=== PATIENT | female | born 1950 | race Caucasian/White ===

== ENCOUNTER 2018-08-12 08:40 | Day surgery (SDC) | payer MEDICARE ==
[~2018-08-12] VITALS: Ht 167.6 cm; Wt 53.6 kg
--- NOTE | ~2018-08-12 | OP ---
PATIENT NAME: DARIUS CARBAJAL MEDICAL RECORD: [id number] :52 LOCATION:[facility] ADMISSION DATE: SURGEON: HARLEY SHAFFER DO DATE OF OPERATION: 08/12/2018 PROCEDURE: Colonoscopy with polypectomy. INDICATION FOR PROCEDURE: Screening for colorectal cancer. SCOPE: Olympus video pediatric colonoscope. MEDICATIONS: Propofol 500 mg IV per anesthesia. WITHDRAWAL TIME: 30 minutes. ESTIMATED BLOOD LOSS: Minimal. COMPLICATIONS: None. FINDINGS: Informed consent was given. The patient was made comfortable with the above medication. After reaching an adequate level of sedation by slow IV push, the patient was placed on her left side. A digital rectal examination was performed and was normal. The endoscope was then advanced under direct visualization through the rectum to the cecum, confirmed by the presence of the appendiceal orifice and the ileocecal valve. In the cecum, there were 2 separate polyps. One was a diminutive benign-appearing polyp measuring approximately 2 mm, which was removed using hot forceps. The other was a larger polyp measuring approximately 1.4 cm in size. It was benign appearing. It was removed using EMR technique with Eleview injection for a cushion followed by snare polypectomy in one piece. There were no other polyps visualized on today's examination. There were no diverticula seen. Retroflexion was performed in the rectum with visualization of grade II internal hemorrhoids without bleeding. The endoscope was withdrawn from the patient. The patient tolerated the procedure well and there were no complications. The large polyp removed was endoclipped after removal for tissue positioning purposes and to prevent complications after discharge. Two clips were used in total successfully. IMPRESSION: 1. Two cecal polyps removed using combination of hot forceps and hot snare with EMR technique. 2. Grade II internal hemorrhoids without bleeding. PLAN AND RECOMMENDATIONS: 1. Discharge home when recovery parameters are met. 2. Follow up biopsy specimen results. 3. High-fiber diet. 4. Continue current medications. 5. Recall colonoscopy in 2 years. TRANSINT:[id number] Voice Confirmation ID: [id number] DOCUMENT ID: [id number] OPERATIVE REPORT [id number] DARIUS CARBAJALHARLEY MANSFIELD DO CC: [id number] DICTATION DATE: 08/12/18 1144 [employer] RUNNER: 08/12/18 140[id number] [place] [address]
[2018-08-12] MEDS ORDERED: ADVAIR HFA [SP]12 GM INH (09:29)
[2018-08-12] MEDS ORDERED: TUDORZA PRESS400 MCG INH (09:30)
[2018-08-12] MEDS ORDERED: MAXZIDE 75/501 TAB PO (09:31)
[2018-08-12] MEDS ORDERED: LISINOPRIL5 MG PO (09:31)
[2018-08-12 09:41] VITALS: BP 210/107; BMI 19.0
--- NOTE | 2018-08-12 09:45 | NUR ---
PT BP 210/107. INFORMED ANESTHESIA TEAM OF BP. BILL STATES NOT TO GIVE BP MED. WILL CONTINUE TO MONITOR.
[2018-08-12 11:29] LABS: HEMATOCRIT 47.7 % (36.0-48.0); HEMOGLOBIN 16.3 g/dL (12-16); MCH 31.7 pg (26.0-34.0); MCHC 34.2 g/dL (31.0-37.0); MCV 92.8 fL (80.0-100.0); MEAN PLATELET VOLUME 10.6 fL (7.4-10.4); RBC 5.14 10x6/uL (4.00-5.40); RDW 11.8 % (11.5-14.5); WBC 9.5 10x3/uL (4.8-10.8)
--- NOTE | 2018-08-12 15:10 | NUR ---
Lisy MEDINA FROM DR. GOLDBERG OFFICE AT BEDSIDE. NO NEW ORDERS. IV D/C'D WITH CANNULA INTACT. VSS. NO COMPLAINTS. DISCHARGE INSTRUCTIONS GIVEN AND PT VERBALIZED AN UNDERSTANDING
[2018-08-12 15:13] VITALS: Ht 167.6 cm; Wt 53.6 kg
== END 2018-08-12 15:08 | disposition home or self-care (01) ==
LOC: D.OPS 08:40
PROVIDERS: Anesthesiology; ATTEND Internal Medicine Gastroenterology
DX: Z12.11 Encounter for screening for malignant neoplasm of colon (principal); D12.0 Benign neoplasm of cecum; K64.1 Second degree hemorrhoids; Z01.812 Encounter for preprocedural laboratory examination

== ENCOUNTER 2018-08-19 09:19 | Day surgery (SDC) | payer MEDICARE ==
[~2018-08-19] VITALS: Ht 167.6 cm; Wt 56.7 kg
[~2018-08-19 09:19] MED LIST: ADVAIR HFA [SP]12 GM INH; LISINOPRIL5 MG PO; MAXZIDE 75/501 TAB PO; TUDORZA PRESS400 MCG INH
[2018-08-19 10:06] LABS: HEMATOCRIT 45.3 % (36.0-48.0); MCH 31.4 pg (26.0-34.0); MCHC 33.1 g/dL (31.0-37.0); MCV 94.8 fL (80.0-100.0); MEAN PLATELET VOLUME 9.9 fL (7.4-10.4); RBC 4.78 10x6/uL (4.00-5.40); RDW 12.2 % (11.5-14.5); WBC 8.9 10x3/uL (4.8-10.8)
[2018-08-19 10:24] LABS: CALC OSMOLALITY 278 mosm/kg (275-300); CALCIUM 9.3 mg/dL (8.5-10.1); CARBON DIOXIDE 30.4 mmol/L (21.0-32.0); CHLORIDE - SERUM 98 mmol/L (98-107); CREATININE - SERUM 0.8 mg/dL (0.6-1.3); GLUCOSE 145 mg/dL (74-106); POTASSIUM - SERUM 4.3 mmol/L (3.5-5.1); SODIUM 137 mmol/L (136-145); UREA NITROGEN 18 mg/dL (7-18); eGFR NON AFRICAN AMERICAN 76 mL/min (90-120)
[2018-08-19 10:31] VITALS: BP 165/80; Ht 167.6 cm; Wt 56.7 kg
--- NOTE | 2018-08-19 12:11 | NUR ---
DC INSTRUCTIONS GIVEN TO PT/FAMILY. STATE UNDERSTANDING. DC'D IV CATH FULLY INTACT.
--- NOTE | 2018-08-19 12:20 | NUR ---
PT LEFT UNIT VIA WC AT 1220
--- NOTE | 2018-08-19 14:22 | OP ---
PATIENT NAME: DARIUS CARBAJAL MEDICAL RECORD: [id number] :52 LOCATION:[facility] ADMISSION DATE: SURGEON: HARLEY SHAFFER DO DATE OF OPERATION: 08/19/2018 PROCEDURE: EGD with biopsies. INDICATIONS FOR PROCEDURE: Cough as well as nausea and vomiting. SCOPE: Olympus video gastroscope. MEDICATIONS: Propofol 120 mg IV per anesthesia. ESTIMATED BLOOD LOSS: Minimal. COMPLICATIONS: None. FINDINGS AND DESCRIPTION OF PROCEDURE: Informed consent was given. The patient was made comfortable with the above medication. After reaching an adequate level of sedation by slow IV push, the patient was placed on her left side. The endoscope was advanced under direct visualization through the mouth, to the second portion of the duodenum. In the oropharynx down to the GE junction, there was diffuse thrush and esophageal candidiasis. At the GE junction, there was evidence of LA class A reflux-induced esophagitis. The endoscope was advanced beyond the GE junction into the stomach and retroflexed to view the cardia, which appeared normal. The fundus and body of the stomach appeared normal. In the antrum and prepyloric region, there was some erythema and granularity consistent with possible gastritis. Random cold forceps biopsies were taken to submit for histopathology and to rule out the presence of H. pylori. The endoscope was advanced beyond the pylorus into the duodenum, which appeared normal down to the second portion. The endoscope was withdrawn from the patient. The patient tolerated the procedure well and there were no complications. IMPRESSIONS: 1. Oral thrush and candidal esophagitis. 2. LA class A reflux esophagitis. 3. Gastritis. Biopsies taken. PLAN AND RECOMMENDATIONS: 1. Discharge home when recovery parameters are met. 2. Follow up biopsy specimen results. 3. GERD diet and reflux precautions. 4. Continue current medications. 5. We will provide a prescription for omeprazole 40 mg daily times 60 days. 6. Treat esophageal candidiasis with Diflucan 100 mg daily times 10 days. 7. To workup the nausea and vomiting further, we will order a right upper quadrant ultrasound. If this is normal, we will consider a PIPIDA scan. 8. If the above tests are normal and the patient is not improving with medications, we will consider a gastric emptying scan. TRANSINT:[id number] Voice Confirmation ID: [id number] DOCUMENT ID: [id number] OPERATIVE REPORT [id number] DARIUS CARBAJAL,HARLEY Gaffney DO at 1422 CC: [id number] DICTATION DATE: 08/19/18 1133 DAMAGED FREIGHT INSPECTOR: 08/19/18 1225 [facility] 08/19/18 [id number] [place] [address]
== END 2018-08-19 12:20 | disposition home or self-care (01) ==
LOC: D.OPS 09:19
PROVIDERS: Anesthesiology; ATTEND Internal Medicine Gastroenterology
DX: B37.0 Candidal stomatitis (principal); B37.81 Candidal esophagitis; K21.0 Gastro-esophageal reflux disease with esophagitis; K29.50 Unspecified chronic gastritis without bleeding; Z01.812 Encounter for preprocedural laboratory examination